=== PATIENT | male | born 1985 | race Caucasian/White ===

== ENCOUNTER 2017-07-01 09:25 | Emergency (ER) | payer OTHER ==
--- NOTE | 2017-07-01 11:01 | UC ---
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 Patient stated his mother has sinusitis and bronchitis. Patient was evaluated for chest pain at the ER last week: "all good". 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 PCP Sean PETERSON. " He has had pain behind his eyes x 1 week, upper teeth hurt. increased pain when bends over to tie his shoes. no asthma. - History of Current Complaint Chief Complaint: UCRespiratory Time Seen by Provider: 07/01/17 10:53 Stated Complaint: COUGH,SINUS,FEVER - Allergy/Home Medications Allergies/Adverse Reactions: Allergies Allergy/AdvReac Type Severity Reaction Status Date / Time No Known Allergies Allergy Verified 07/01/17 10:50 Home Medications: Home Medications Dextromethorphan-Phenylephrine [Vicks Dayquil Cold & Flu 10-5-325 mg] 2 cap PO Q6H PRN 07/01/17 [History Confirmed 07/01/17] Ivhmsnpbtmzma-Wwgajdqptv-Eprkx [Nyquil Severe Cold/Flu 5-6.25-10-325 mg/15Ml] 30 ml PO Q6H PRN 07/01/17 [History Confirmed 07/01/17] Review of Systems Constitutional: Fever - subjective, Chills Skin: Negative Eyes: Negative ENT: Ear Ache, Nasal Discharge, Sinus Congestion, Sinus Pain/Tenderness Respiratory: Negative Cardiovascular: Negative Gastrointestinal: Negative Genitourinary: Negative Motor: Negative Neurovascular: Negative Musculoskeletal: Negative Neurological: Negative Psychological: Negative Is Patient Immunocompromised?: No All Other Systems Reviewed And Are Negative: Yes PMH/Surg Hx/FS Hx/Imm Hx Previously Healthy: Yes - Surgical History Surgical History: Yes Surgery Procedure, Year, and Place: Appendectomy, 2012, [place]; Facial s/p Dog Bite, 1991, [place] - Family History Known Family History: Positive: Respiratory Disease - no Fhx asthma, Other - Social History Alcohol Use: Occasionally Substance Use Type: Marijuana Substance Use Comment - Amount & Last Used: daily; 07/01/17 Smoking Status (MU): Current Every Day Smoker Type: eCigarettes Amount Used/How Often: 3mL daily Length of Time of Smoking/Using Tobacco: eCigarettes x 3 Years; 2 PPD x 10 Years - Immunization History Most Recent Influenza Vaccination: Not the 2016/2017 Season Physical Exam Triage Information Reviewed: Yes Appearance: Well-Nourished, Ill-Appearing - mild Eye Exam: Normal ENT: Positive: Pharyngeal erythema - +PND, TMs normal, Other: - B/L frontal and maxillary tenderness. Negative: Tonsillar swelling, Tonsillar exudate Dental Exam: Normal Neck exam: Normal Neck: Positive: Supple, Nontender, No Lymphadenopathy Respiratory Exam: Normal Respiratory: Positive: Lungs clear, No respiratory distress, No accessory muscle use, Decreased breath sounds - mild b/l, Wheezing - mild Cardiovascular Exam: Normal Cardiovascular: Positive: RRR, No Murmur, Pulses Normal, Brisk Capillary Refill Abdominal Exam: Normal Abdomen Description: Positive: Nontender, Soft Musculoskeletal Exam: Normal Neurological Exam: Normal Psychological Exam: Normal Skin Exam: Normal Course/Dx - Course Course Of Treatment: sinuistis & bronchitis - Diagnoses Provider Diagnoses: Sinusitis, mild bronchitis Discharge - Discharge Plan Condition: Stable Disposition: HOME Prescriptions: Albuterol 2.5MG/3ML (0.083%)* [Ventolin 2.5 MG/3 ML NEB.SANDI*] 2.5 mg INH Q4H #1 neb.sandi Amoxicillin PO (*) [Amoxicillin 875 MG (*)] 875 mg PO BID #20 tab Patient Education Materials: Sinusitis (ED), Acute Bronchitis (ED) Referrals: NICHOLAS Hein [Primary Care Provider] - Additional Instructions: Make sure to take a probiotic daily while on antibiotics to help prevent a potential complication of antibiotic use called c diff. Some well known brands that can be found OTC are Planitax, Clean Plates and Next Generation Dance. Make sure to complete the entire prescription unless advised otherwise by your health care provider.
== END 2017-07-01 11:28 | disposition home or self-care (01) ==
LOC: UCCORT 09:25
DX: J32.9 Chronic sinusitis, unspecified (principal); F17.210 Nicotine dependence, cigarettes, uncomplicated; J40 Bronchitis, not specified as acute or chronic
CPT/HCPCS: 99212; G0463

== ENCOUNTER 2017-10-30 13:50 | Emergency (ER) | payer OTHER ==
--- NOTE | 2017-10-30 14:55 | RAD ---
Edited for charges. INDICATION: Right foot and ankle pain after inversion injury COMPARISON: None. TECHNIQUE: 3 views of the right foot and 3 views of the right ankle were obtained. FINDINGS: The adequately corticated bones are properly aligned. Joint spaces appear maintained. No fracture, dislocation or focal bony abnormality is seen. IMPRESSION: NO RADIOGRAPHICALLY APPARENT FRACTURE INVOLVING THE RIGHT FOOT OR ANKLE. If the patient's symptoms persist, follow-up imaging is recommended. LAVINIA
[2017-10-30] MEDS ORDERED: Ketorolac INJ* 60 MG/2 ML VIAL IM ONE (16:06)
--- NOTE | 2017-10-30 16:40 | RAD ---
Indication: Right leg pain after right ankle inversion injury Comparison: None. Technique: AP and lateral views right lower leg. Report: The visualized bones are adequately corticated and well aligned. There is no acute fracture, dislocation or other focal abnormality. The soft tissues appear grossly normal. IMPRESSION: Normal right lower leg radiograph. If the patient's symptoms persist, follow-up imaging is recommended.
[2017-10-30 17:07] VITALS: BP 116/64
--- NOTE | 2017-10-30 17:41 | ED ---
Lower Extremity - HPI Summary HPI Summary: Patient is an otherwise healthy 32-year-old male who presents to the ED with a right lower leg and ankle pain after slipping on the stairs this afternoon. He denies any numbness or tingling. Denies any color or temperature changes. There is some moderate amount of swelling to the right lateral malleolus without ecchymosis. He is unable to bear weight. Foot is most comfortable in a plantarflexed position. Worsening pain to the right medial lower leg with dorsiflexion. Achilles tendon without pain and intact and without bruising. Denies decreased sensation into the lower extremity. Pain is 8 out of 10, constant, aching. He has never injured the right lower extremity before. - History of Current Complaint Chief Complaint: EDExtremityLower Stated Complaint: POSSIBLE BROKEN ANKLE/LEG Time Seen by Provider: 10/30/17 14:08 Hx Obtained From: Patient Mechanism Of Injury: Twisted Onset of Pain: Minutes Onset/Duration: Minutes Severity Initially: Mild Severity Currently: Mild Pain Intensity: 2 Pain Scale Used: 0-10 Numeric Timing: Constant Location: Is Discrete @ - Right lateral ankle with swelling Character Of Pain: Aching Associated Signs And Symptoms: Positive: Swelling, Bruising Aggravating Factor(s): Standing, Ambulation Alleviating Factor(s): Rest Able to Bear Weight: No - Risk Factors Gout Risk Factors: Negative DVT Risk Factors: Negative Septic Arthritis Risk Factor: Negative - Allergies/Home Medications Allergies/Adverse Reactions: Allergies Allergy/AdvReac Type Severity Reaction Status Date / Time No Known Allergies Allergy Verified 07/01/17 10:50 PMH/Surg Hx/FS Hx/Imm Hx Previously Healthy: Yes - Surgical History Surgery Procedure, Year, and Place: Appendectomy, 2012, [place]; Facial s/p Dog Bite, 1991, [place] - Immunization History Hx Pertussis Vaccination: No Immunizations Up to Date: Unable to Obtain/Confirm Infectious Disease History: No Infectious Disease History: Denies: Traveled Outside the [place] in Last 30 Days - Family History Known Family History: Positive: Respiratory Disease - no Fhx asthma, Other - Social History Occupation: Employed Full-time Lives: With Family Alcohol Use: Occasionally Hx Substance Use: Yes Substance Use Type: Reports: Marijuana Substance Use Comment - Amount & Last Used: daily; 07/01/17 Hx Tobacco Use: Yes Smoking Status (MU): Current Every Day Smoker Type: eCigarettes Amount Used/How Often: 3mL daily Length of Time of Smoking/Using Tobacco: eCigarettes x 3 Years; 2 PPD x 10 Years Review of Systems Constitutional: Negative Negative: Fever, Chills, Fatigue Eyes: Negative Cardiovascular: Negative Respiratory: Negative Positive: no symptoms reported, see HPI Positive: Arthralgia - right lateral malleolus swelling, Myalgia Negative: Bruising Neurological: Negative All Other Systems Reviewed And Are Negative: Yes Physical Exam Triage Information Reviewed: Yes Vital Signs On Initial Exam: Initial Vitals Temp Pulse Resp BP Pulse Ox 99.4 F 94 16 91/58 98 10/30/17 13:59 10/30/17 13:59 10/30/17 13:59 10/30/17 13:59 10/30/17 13:59 Vital Signs Reviewed: Yes Appearance: Positive: Well-Appearing, Well-Nourished, Signs of Trauma Skin: Positive: Warm, Skin Color Reflects Adequate Perfusion Head/Face: Positive: Normal Head/Face Inspection Eyes: Positive: EOMI, MAKENZIE, Conjunctiva Clear Neck: Positive: Supple, Nontender, No Lymphadenopathy Respiratory/Lung Sounds: Positive: Clear to Auscultation, Breath Sounds Present Cardiovascular: Positive: RRR, Pulses are Symmetrical in both Upper and Lower Extremities Musculoskeletal: Positive: Pain @ - Right lateral malleolus Neurological: Positive: Speech Normal Psychiatric: Positive: Normal, Affect/Mood Appropriate Diagnostics - Vital Signs Vital Signs Temp Pulse Resp BP Pulse Ox 10/30/17 17:06 98.2 F 86 18 116/64 98 10/30/17 13:59 99.4 F 94 16 91/58 98 - Laboratory Lab Statement: Any lab studies that have been ordered have been reviewed, and results considered in the medical decision making process. Lower Extremity Course/Dx - Course Course Of Treatment: During the course of treatment the patient is evaluated for right lower extremity pain. Thorough physical exam was performed, focusing on ankle special tests. Pain on palpation over lateral aspect and superior aspect of ankle over ATFL and deltoid ligaments. No pain on palpation over medial side of the ankle. Pain to the right medial lower extremity. Due to patient pain around injury, physical exam was limited. Anterior drawer and Cirilo tilt test negative, but painful. Otoole test negative. Limited ROM. Dorsiflexion, great toe extension and plantar flexion intact however limited. No pain on palpation over medial or lateral lower extremity. No pain with knee flexion. Pulses intact bilaterally. No temperature change or pallor noted bilaterally. No echymosis and swelling noted on lateral aspect. No lesion or disruption of skin is seen. Unable to bear weight. Based on [place] Ankle Rules, patient sent to imaging. Xray negative for fracture or other acute findings. Soft tissue swelling noted over the lateral aspect of the ankle. Medial and lateral distal lower extremity without pain and x-rays show no widening of the ankle joint regarding low suspicion for Maisonneuve fx. Ankle was marcus wrapped to patient comfort to allow for immobilization for this period of time. Crutches given. Patient given orthopedic follow up in 5-7 days. Encouraged Ibuprofen 600mg three times daily with meals for pain. Return precautions given. Educated patient regarding ankle injuries and healing time and the possibility of further evaluation and imaging as orthopedist sees fit. - Diagnoses Differential Diagnosis/HQI/PQRI: Positive: Fracture (Closed), Fracture (Open) Provider Diagnoses: Ankle sprain Discharge - Discharge Plan Condition: Stable Disposition: HOME Patient Education Materials: Ankle Sprain (DC) Referrals: No Primary Care Phys,NOPCP [Primary Care Provider] - Additional Instructions: Ibuprofen 600 mg 3 times daily Ice Rest Elevate above the heart Keep Marcus wrapped for 3 days
== END 2017-10-30 17:06 | disposition home or self-care (01) ==
LOC: ED 13:50
DX: S93.401A Sprain of unspecified ligament of right ankle, initial encounter (principal); F17.210 Nicotine dependence, cigarettes, uncomplicated; W01.0XXA Fall on same level from slipping, tripping and stumbling without subsequent striking against object, initial encounter; W10.9XXA Fall (on) (from) unspecified stairs and steps, initial encounter
CPT/HCPCS: 99282; J1885

== ENCOUNTER 2018-11-06 18:36 | Emergency (ER) | payer OTHER ==
[2018-11-06 20:30] VITALS: BP 109/68
--- NOTE | 2018-11-06 20:43 | UC ---
Skin Complaint HPI - HPI Summary HPI Summary: The patient is a 33-year-old male with pain in the gluteal cleft overlying his tailbone. He denies any trauma. The onset was soon after spending a lot of time sitting at it computer. He notes no swelling or redness. He has never had symptoms like this before. - History of Current Complaint Chief Complaint: UCGeneralIllness Time Seen by Provider: 11/06/18 20:27 Stated Complaint: PAIN IN TAILBONE AREA Hx Obtained From: Patient Onset/Duration: Gradual Onset, Lasting Hours Skin Exposure Onset/Duration: Minutes Ago Onset Severity: Mild Current Severity: Mild Pain Intensity: 2 - worse when sitting Pain Scale Used: 0-10 Numeric Location: Other - gluteal cleft Character: Pain Aggravating Factor(s): Touch Alleviating Factor(s): Nothing Associated Signs & Symptoms: Positive: Tenderness - Allergy/Home Medications Allergies/Adverse Reactions: Allergies Allergy/AdvReac Type Severity Reaction Status Date / Time No Known Allergies Allergy Verified 11/06/18 20:23 Home Medications: Home Medications NK [No Home Medications Reported] 11/06/18 [History Confirmed 11/06/18] PMH/Surg Hx/FS Hx/Imm Hx Previously Healthy: Yes - Surgical History Surgical History: Yes Surgery Procedure, Year, and Place: Appendectomy, 2012, [place]; Facial s/p Dog Bite, 1991, [place] - Family History Known Family History: Positive: Respiratory Disease - no Fhx asthma, Other - Social History Alcohol Use: Occasionally Substance Use Type: Marijuana Substance Use Comment - Amount & Last Used: daily; 11/06/18 Smoking Status (MU): Current Every Day Smoker Type: eCigarettes Amount Used/How Often: 3mL daily Length of Time of Smoking/Using Tobacco: eCigarettes x 3 Years; 2 PPD x 10 Years - Immunization History Most Recent Influenza Vaccination: Not the 2017/2017 Season Review of Systems All Other Systems Reviewed And Are Negative: Yes Constitutional: Positive: Negative Skin: Positive: Negative Eyes: Positive: Negative ENT: Positive: Negative Respiratory: Positive: Negative Cardiovascular: Positive: Negative Gastrointestinal: Positive: Negative Genitourinary: Positive: Negative Motor: Positive: Negative Neurovascular: Positive: Negative Musculoskeletal: Positive: Negative Neurological: Positive: Negative Psychological: Positive: Negative Physical Exam Triage Information Reviewed: Yes Appearance: Well-Appearing, No Pain Distress, Well-Nourished Vital Signs: Initial Vital Signs Temp 98.4 F 11/06/18 20:23 Pulse 87 11/06/18 20:23 Resp 16 11/06/18 20:23 BP 109/68 11/06/18 20:23 Pulse Ox 98 11/06/18 20:23 Vital Signs Reviewed: Yes Eyes: Positive: Conjunctiva Clear ENT: Positive: Hearing grossly normal. Negative: Nasal congestion, Nasal drainage, Muffled voice, Hoarse voice Neck: Positive: Supple, Nontender Respiratory Exam: Normal Respiratory: Positive: Lungs clear, Normal breath sounds, No respiratory distress Cardiovascular: Positive: RRR, No Murmur, Pulses Normal Abdomen Description: Positive: Nontender Bowel Sounds: Positive: Present Musculoskeletal: Positive: ROM Intact, No Edema Neurological: Positive: Alert Psychological Exam: Normal Skin Exam: Other - tender glutal cleft /no redness/no swelling /?pilonidal cyst vs lipoma vs other Course/Dx - Diagnoses Provider Diagnosis: Pilonidal cyst without infection Discharge - Sign-Out/Discharge Documenting (check all that apply): Patient Departure All imaging exams completed and their final reports reviewed: No Studies - Discharge Plan Condition: Stable Disposition: HOME Patient Education Materials: Pilonidal Cyst (ED) Referrals: No Primary Care Phys,NOPCP [Primary Care Provider] - Additional Instructions: ibuprofen I suggest you see a surgeon recheck for swelling/redness heat - Billing Disposition and Condition Condition: STABLE Disposition: Home
== END 2018-11-06 20:50 | disposition home or self-care (01) ==
LOC: UCCORT 18:36
DX: L05.91 Pilonidal cyst without abscess (principal); F17.290 Nicotine dependence, other tobacco product, uncomplicated
CPT/HCPCS: 99211; G0463

== ENCOUNTER 2018-12-06 07:11 | Emergency (ER) | payer MEDICAID, OTHER ==
[2018-12-06 07:27] VITALS: BP 126/81
--- NOTE | 2018-12-06 08:03 | ED ---
Throat Pain/Nasal Congestion - HPI Summary HPI Summary: 33 yr old with three days of sore throat and pain that radiates into her right ear. The patient has no runny nose, and no cough. He has some myalgias, no fever. No other complaints. - History of Current Complaint Chief Complaint: UCGeneralIllness Time Seen by Provider: 12/06/18 07:41 - Allergies/Home Medications Allergies/Adverse Reactions: Allergies Allergy/AdvReac Type Severity Reaction Status Date / Time No Known Allergies Allergy Verified 12/06/18 07:25 PMH/Surg Hx/FS Hx/Imm Hx - Surgical History Surgery Procedure, Year, and Place: Appendectomy, 2012, [place]; Facial s/p Dog Bite, 1991, [place] Infectious Disease History: No Infectious Disease History: Denies: Traveled Outside the [place] in Last 30 Days - Family History Known Family History: Positive: Respiratory Disease - no Fhx asthma, Other - Social History Occupation: Unemployed Lives: With Family Alcohol Use: Rare Hx Substance Use: Yes Substance Use Type: Reports: None Substance Use Comment - Amount & Last Used: daily; 11/06/18 Hx Tobacco Use: Yes Smoking Status (MU): Former Smoker Type: eCigarettes Amount Used/How Often: 3mL daily Length of Time of Smoking/Using Tobacco: eCigarettes x 3 Years; 2 PPD x 10 Years Review of Systems Constitutional: Negative Positive: Sore Throat, Ear Ache All Other Systems Reviewed And Are Negative: Yes Physical Exam Triage Information Reviewed: Yes Vital Signs On Initial Exam: Initial Vitals Temp Pulse Resp BP Pulse Ox 97 F 72 16 126/81 98 12/06/18 07:24 12/06/18 07:24 12/06/18 07:24 12/06/18 07:24 12/06/18 07:24 Vital Signs Reviewed: Yes Appearance: Positive: Well-Appearing, No Pain Distress Skin: Positive: Warm, Skin Color Reflects Adequate Perfusion Head/Face: Positive: Normal Head/Face Inspection Eyes: Positive: EOMI ENT: Positive: Pharyngeal erythema, TMs normal. Negative: Nasal congestion, Nasal drainage Neck: Positive: Nontender Respiratory/Lung Sounds: Positive: Clear to Auscultation, Breath Sounds Present Cardiovascular: Positive: RRR. Negative: Murmur Abdomen Description: Positive: Distended Musculoskeletal: Positive: Strength/ROM Intact Neurological: Positive: Sensory/Motor Intact, Alert, Oriented to Person Place, Time, CN Intact II-III, Normal Gait, Speech Normal Psychiatric: Positive: Normal Diagnostics - Vital Signs Vital Signs Temp Pulse Resp BP Pulse Ox 12/06/18 07:24 97 F 72 16 126/81 98 - Laboratory Lab Statement: Any lab studies that have been ordered have been reviewed, and results considered in the medical decision making process. EENT Course/Dx - Course Course Of Treatment: 33 yr old with strep throat. Rx with Amox. - Diagnoses Provider Diagnoses: Strep throat Discharge - Sign-Out/Discharge Documenting (check all that apply): Patient Departure All imaging exams completed and their final reports reviewed: No Studies - Discharge Plan Condition: Good Disposition: HOME Prescriptions: Amoxicillin PO (*) [Amoxicillin 500 MG CAP*] 500 mg PO TID #30 cap Patient Education Materials: Strep Throat (ED) Referrals: [facility] [facility] [Outside] - 2 Days No Primary Care Phys,NOPCP [Primary Care Provider] - - Billing Disposition and Condition Condition: GOOD Disposition: Home
== END 2018-12-06 08:27 | disposition home or self-care (01) ==
LOC: UCCORT 07:11
DX: J02.0 Streptococcal pharyngitis (principal); Z87.891 Personal history of nicotine dependence
CPT/HCPCS: 87651; 99212; G0463

== ENCOUNTER 2019-06-06 16:29 | Emergency (ER) | payer MEDICAID, OTHER ==
--- OUTSIDE RECORDS SUMMARY | 2019-06-06 18:21 | XMS REPORT | Continuity of Care Document ---
:1985 External Reference #:[id number] Author Name Jagjit Velasco MD Address [address] [place] [address] Care Team Providers Name Role Phone Jagjit Velasco MD - Care Team Information [facility] Mason [phone] Gastroenterology Problems Active Problems Provider Date Epilepsy Tyrese Hernandez MD Onset: 01/07/2016 Bipolar disorder Tyrese Hernandez MD Onset: 01/07/2016 Hemorrhoids without complication Jagjit Velasco MD Onset: 07/24/2018 Abdominal pain Jagjit Velasco MD Onset: 07/24/2018 Social History Type Date Description Comments Sex Unknown ETOH Use Currently consumes alcohol weekend Tobacco Use Start: Unknown End: Patient is a former smoker Recreational Drug Use 2009 Cocaine Recreational Drug Use 2009 Marijuana Smoking Status Reviewed: 04/22/19 Patient is a former smoker Allergies, Adverse Reactions, Alerts Description No Known Drug Allergies Medications Active Medications SIG Qnty Indications Ordering Provider Date Tylenol 2 tabs as needed Unknown 325mg Tablets for pain or discomfort every 4 hours as needed Immunizations Description No Information Available Vital Signs Date Vital Result Comment 04/22/2019 1:34pm BP Systolic Sitting Left Arm 110 mmHg BP Diastolic Sitting Left Arm 72 mmHg Heart Rate 78 /min Respiratory Rate 16 /min Height 70 inches 5'10" Weight 191.00 lb BMI (Body Mass Index) 27.4 kg/m2 BSA (Body Surface Area) 2.05 m2 [place] body weight in kilograms 75 kg O2 % BldC Oximetry 96 % Ra 02/21/2019 11:15am BP Systolic Sitting Left Arm 115 mmHg BP Diastolic Sitting Left Arm 70 mmHg Heart Rate 70 /min Respiratory Rate 17 /min Height 70 inches 5'10" Weight 191.00 lb BMI (Body Mass Index) 27.4 kg/m2 BSA (Body Surface Area) 2.05 m2 [place] body weight in kilograms 75 kg O2 % BldC Oximetry 98 % Results Description No Information Available Procedures Date Code Description Status 02/21/2019 73787 Anoscopy Completed 07/19/2017 44832240 Colonoscopy Completed 06/22/2016 84156596 Colonoscopy Completed Medical Devices Description No Information Available Encounters Type Date Location Provider Dx Diagnosis Office Visit 02/21/2019 GI Jagjit Velasco MD K64.2 Third degree 11:15a hemorrhoids R10.9 Unspecified abdominal pain Assessments Date Code Description Provider 02/21/2019 K64.2 Third degree hemorrhoids Jagjit Velasco MD 02/21/2019 R10.9 Unspecified abdominal pain Jagjit Velasco MD Plan of Treatment 02/21/2019 - Jagjit Velasco MDK64.2 Third degree hemorrhoidsComments:internal with external componentcandidate for bandingset up for next available slotR10.9 Unspecified abdominal painComments:referral to Dr Marino for possible lysis of adhesions Functional Status Description No Information Available Mental Status Description No Information Available Referrals Description No Information Available
--- OUTSIDE RECORDS SUMMARY | 2019-06-06 18:21 | XMS REPORT | Continuity of Care Document ---
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 [phone] Gastroenterology Problems Active Problems Provider Date Epilepsy Tyrese Hernandez MD Onset: 01/07/2016 Bipolar disorder Tyrese Hernandez MD Onset: 01/07/2016 Hemorrhoids without complication Jagjit Velasco MD Onset: 07/24/2018 Abdominal pain Jagjit Velasco MD Onset: 07/24/2018 Social History Type Date Description Comments Sex Unknown ETOH Use Currently consumes alcohol Tobacco Use Start: Unknown End: Patient is a former smoker Recreational Drug Use 2009 Cocaine Recreational Drug Use 2009 Marijuana Smoking Status Reviewed: 04/22/19 Patient is a former smoker Allergies, Adverse Reactions, Alerts Description No Known Drug Allergies Medications Active Medications SIG Qnty Indications Ordering Date Provider Nitroglycerin 0.125% 1 unit apply to 30gm K60.0 Jagjit eVlasco 2018 Ointment affected area three MD 0.125 Ointment times a day as needed Tylenol 2 tabs as needed Unknown 325mg [...] kg/m2 BSA (Body Surface Area) 2.05 m2 [place] body weight in kilograms 75 kg O2 % BldC Oximetry 96 % Ra 02/21/2019 11:15am BP Systolic Sitting Left Arm 115 mmHg BP Diastolic Sitting Left Arm 70 mmHg Heart Rate 70 /min Respiratory Rate 17 /min Height 70 inches 5'10" Weight 191.00 lb BMI (Body Mass Index) 27.4 kg/m2 BSA (Body Surface Area) 2.05 m2 [place] body weight in kilograms 75 kg O2 % BldC Oximetry 98 % Results Description No Information Available Procedures Date Code Description Status 04/22/2019 39169 Anoscopy Completed 02/21/2019 17448 Anoscopy Completed 07/19/2017 16195279 Colonoscopy Completed 06/22/2016 98211518 Colonoscopy Completed Medical Devices Description No Information Available Encounters Type Date Location Provider Dx Diagnosis Office Visit 02/21/2019 GI Jagjit Velasco MD K64.2 Third degree 11:15a hemorrhoids R10.9 Unspecified abdominal pain Assessments Date Code Description Provider 04/22/2019 K64.2 Third degree hemorrhoids Jagjit Velasco MD 04/22/2019 K60.0 Acute anal fissure Jagjit Velasco MD 04/22/2019 R19.7 Diarrhea, unspecified Jagjit Velasco MD 04/22/2019 R10.9 Unspecified abdominal pain Jagjit Velasco MD 02/21/2019 K64.2 Third degree hemorrhoids Jagjit Velasco MD 02/21/2019 R10.9 Unspecified abdominal pain Jagjit Velasco MD Plan of Treatment 04/22/2019 - Jagjit Velasco MDK64.2 Third degree hemorrhoidsComments:banding attempted but not successful. need to heal up the fissureFollow up:4-6 iabatY82.0 Acute anal fissureNew Medication:Nitroglycerin 0.125% Ointment 0.125 - 1 unit apply to affected area three times a day as neededComments: nitroglycerin 0.125%R19.7 Diarrhea, unspecifiedNew Labs:Celiac Disease Comp PNL , Ordered: 04/22/19IBD Expanded Panel, Ordered: 04/22/19Amylase, Ordered: Lipase, Ordered: 04/22/19Pancreatic Elastase-1, Ordered: 08/05/19Stool Panel, Ordered: 04/22/19Fecal Fat Panel, Ordered: 04/22/19Comments:diarrhea persistscolonoscopy jul 2017 was normalpatient not drinking milkR10.9 Unspecified abdominal painComments:history of painhistory of surgeryreferral to Dr bledsoe Functional Status Description No Information Available Mental Status Description No Information Available Referrals Description No Information Available
== END 2019-06-06 18:51 | disposition left against medical advice (07) ==
LOC: UCCORT 16:29
DX: J34.9 Unspecified disorder of nose and nasal sinuses (principal); Z53.21 Procedure and treatment not carried out due to patient leaving prior to being seen by health care provider